=== PATIENT | male | born 1980 | race Caucasian/White ===

== ENCOUNTER 2018-09-23 22:09 | Emergency (ER) | payer OTHER, MEDICAID ==
[~2018-09-23] VITALS: Ht 165.1 cm; Wt 70.9 kg
[2018-09-23 22:11] VITALS: Ht 165.1 cm; Wt 70.9 kg
[2018-09-24] MEDS ORDERED: SOD CHLORIDE 0.9% 1,000 ML IV STA (02:58)
[2018-09-24] MEDS ORDERED: ONDANSETRON 4 MG INJ IV STA (02:58)
[2018-09-24] MEDS ORDERED: LIDOCAINE/MYLANTA 40 ML BTL PO STA (03:51)
[2018-09-24] MEDS ORDERED: FAMOTIDINE 20 MG INJ IV STA (03:51)
--- NOTE | 2018-09-24 03:57 | ERD ---
ER Documentation Chief Complaint Chief Complaint abdominal pain x 2 days HPI This is a 38-year-old male with a past medical history of cholelithiasis who is presenting with 2 days of waxing and waning mild to moderate aching burning colicky epigastric and right upper quadrant pain with nausea and multiple episodes of nonbilious nonbloody yellow vomiting. The patient reports that right now, his symptoms have improved, but when he first came to the emergency department, his symptoms were fairly severe. The patient denies any co nstipation or diarrhea. He denies black or bloody or tarry stools. He denies dysuria or hematuria or urgency or frequency. He denies fever or chills. The patient has had no headache or vision changes. The patient does not endorse neck or back pain. The patient denies lightheadedness or dizziness. The patient has had no chest pain or trouble breathing. The patient has had no focal deficits. The patient has had no weakness or numbness or tingling to the face or extremities. ROS All systems reviewed and are negative except as per history of present illness. Medications Home Meds No Active Prescriptions or Reported Meds Allergies Allergies: Coded Allergies: No Known Allergy (Unverified , 07/03/14) PMhx/Soc History of Surgery: No Anesthesia Reaction: No Hx Neurological Disorder: No Hx Respiratory Disorders: No Hx Cardiac Disorders: No Hx Psychiatric Problems: No Hx Miscellaneous Medical Probl: Yes (Cholelithiasis) Hx Alcohol Use: Yes (OOC) Hx Substance Use: Yes (MJ DAILY) Hx Tobacco Use: No Smoking Status: Never smoker FmHx Family History: No diabetes Physical Exam Vitals Vital Signs Date Temp Pulse Resp B/P (MAP) Pulse Ox O2 O2 Flow FiO2 Time Delivery Rate 09/24/18 98.2 70 14 128/88 98 Room Air 05:03 (101) 09/24/18 98.2 66 14 122/76 98 Room Air 04:09 (91) 09/24/18 98.2 68 16 128/76 98 Room Air 03:06 (93) 09/24/18 98.2 77 18 128/63 98 Room Air 02:46 (84) 09/23/18 98.2 72 18 128/63 98 22:11 (84) Physical Exam Const: No apparent distress, well-developed, well-nourished Head: Normocephalic, Atraumatic Eyes: Normal Conjunctiva. Extraocular movements intact. Pupils equal, round and reactive to light ENT: Normal External Ears, Nose and Mouth. Neck: Full range of motion. No meningismus. Resp: Clear to auscultation bilaterally, No wheezes, rales or rhonchi Cardio: Regular rate and rhythm. No murmurs, rubs or gallops Abd: Soft, non tender, non distended. Normal bowel sounds Skin: No petechiae or rashes Back: No midline tenderness. No CVA tenderness Ext: No cyanosis, or edema Neur: Awake and alert, oriented 4. Cranial nerves intact. No facial droop. Normal strength, sensation and coordination. Psych: Normal Mood and Affect Result Diagram: 09/24/1825409/24/18254 Results 24 hrs Laboratory Tests Test 09/24/18 02:55 White Blood Count 10.0 10^3/ul Red Blood Count 5.31 10^6/ul Hemoglobin 15.6 g/dl Hematocrit 45.9 % Mean Corpuscular Volume 86.4 fl Mean Corpuscular Hemoglobin 29.4 pg Mean Corpuscular Hemoglobin Concent 34.0 g/dl Red Cell Distribution Width 12.3 % Platelet Count 311 10^3/UL Mean Platelet Volume 8.8 fl Immature Granulocytes % 0.400 % Neutrophils % 70.5 % Lymphocytes % 23.6 % Monocytes % 5.0 % Eosinophils % 0.1 % Basophils % 0.4 % Nucleated Red Blood Cells % 0.0 /100WBC Immature Granulocytes # 0.040 10^3/ul Neutrophils # 7.1 10^3/ul Lymphocytes # 2.4 10^3/ul Monocytes # 0.5 10^3/ul Eosinophils # 0.0 10^3/ul Basophils # 0.0 10^3/ul Nucleated Red Blood Cells # 0.0 10^3/ul Urine Color YELLOW Urine Clarity CLEAR Urine pH 6.0 Urine Specific [place] 1.012 Urine Ketones TRACE mg/dL Urine Nitrite NEGATIVE mg/dL Urine Bilirubin NEGATIVE mg/dL Urine Urobilinogen NEGATIVE mg/dL Urine Leukocyte Esterase NEGATIVE [place]/ul Urine Hemoglobin NEGATIVE mg/dL Urine Glucose 1+ mg/dL Urine Total Protein NEGATIVE mg/dl Sodium Level 140 mmol/L Potassium Level 3.8 mmol/L Chloride Level 102 mmol/L Carbon Dioxide Level 27 mmol/L Anion Gap 11 Blood Urea Nitrogen 10 mg/dl Creatinine 0.78 mg/dl Est Glomerular Filtrat Rate mL/min > 60 mL/min Glucose Level 118 mg/dl Calcium Level 9.7 mg/dl Total Bilirubin 0.4 mg/dl Direct Bilirubin 0.00 mg/dl Indirect Bilirubin 0.4 mg/dl Aspartate Amino Transf (AST/SGOT) 31 IU/L Alanine Aminotransferase (ALT/SGPT) 40 IU/L Alkaline Phosphatase 90 IU/L Total Protein 7.7 g/dl Albumin 4.5 g/dl Globulin 3.20 g/dl Albumin/Globulin Ratio 1.40 Lipase 85 U/L Current Medications Medications Dose Sig/Christiano Start Time Status Last (Trade) Ordered Route PRN Stop Time Admin Dose Reason Admin Sodium 1,000 ml @ Q1H STAT 09/24/18 DC 09/24/18 Chloride 1,000 mls/hr IV 02:58 03:05 09/24/18 03:57 Ondansetron 4 mg ONCE STAT 09/24/18 DC 09/24/18 HCl (Zofran IV 02:58 03:05 Inj) 09/24/18 02:59 Famotidine 20 mg ONCE STAT 09/24/18 DC 09/24/18 (Pepcid Iv) IV 03:51 04:04 09/24/18 03:59 40 ml ONCE STAT 09/24/18 DC 09/24/18 Miscellaneous PO 03:51 04:04 Medication 09/24/18 03:59 (Gi Cocktail (2)) Procedures/MDM MDM The patient's presentation warrants further investigation. Previous medical records, if available, were reviewed. LABS The patient's laboratory testing was obtained and reviewed. No emergent treatment was required unless described below. CBC: No E/o of systemic infection or severe anemia or thrombocytopenia Chemistry: No E/o severe acidosis or alkalosis or renal failure or diabetic ketoacidosis. No hyperbilirubinemia or transaminitis, no e/o obstructive cholestatic liver disease. Lipase: No E/o pancreatitis Urine: No E/o acute infection or hematuria IMAGING Imaging and Radiology interpretation reviewed. Ultrasound abdomen FINDINGS: No sonographic Bell's sign. No distension. No wall thickening. No pericholecystic fluid. No sludge or stones. Common bile duct: 3.15 mm. Visualized liver: 13.15 cm. Homogeneous. Right kidney: 11.8 cm. Pancreas obscured by bowel gas IMPRESSION: Normal examination. Electronically viewed and signed by Physician Whitney on 09/24/2018 04:52 TREATMENT/DISPOSITION The patient presents with waxing and waning episodes of epigastric and right upper quadrant abdominal pain. The patient's abdominal exam is currently benign, the but the patient was evaluated for the possibility of gastritis versus PUD versus GERD. The patient was treated for a possible epigastric pathology with significant improvement of his symptoms. The patient endorses a history of cholelithiasis as well. The patient's right upper quadrant ultrasound does not reveal evidence of cholelithiasis or cholecystitis. I have decreased suspicion for biliary colic. The patient does not have any evidence of peritonitis. The patient does not have clinical symptoms concerning for mesenteric ischemia or ischemic colitis. The patient does not have left upper quadrant tenderness. I have low suspicion for pancreatitis. The patient does not have any right lower quadrant tenderness, or periumbilical tenderness. I have low suspicion for appendicitis. The patient does not have suprapubic tenderness. I have decreased suspicion for cystitis. The patient does not have any left lower quadrant tenderness, and I have low suspicion for diverticulosis or diverticulitis. The patient does not have any flank tenderness. The patient does not have gross hematuria. I have decreased suspicion for nephrolithiasis or renal colic. The patient does not have any palpable pulsatile mass or severe abdominal pain radiating to the back. I have low suspicion for aortic aneurysm, dissection or rupture. DISCHARGE Upon reevaluation of the patient, symptoms have improved. No emergent diagnoses were identified. At this time, I feel that the patient stable for discharge. The patient was instructed to follow-up with a primary care physician in 1-3 days. The patient will be given strict precautions with which to return to the emergency department. Prescriptions: Pepcid, Zofran The patient's blood pressure was elevated at greater than 120/80 while in the emergency department. The patient was otherwise stable with no evidence of hypertensive urgency or emergency. The patient does not require admission for blood pressure control. I have discussed with the patient the risks of hypertension. I have instructed the patient to return to the ER for any new or worsening symptoms including chest pain, shortness of breath, headache, blurred vision, confusion, nausea, vomiting or LOC. I have advised the patient to follow up with the primary care physician for outpatient monitoring and treatment for hypertension in 1-3 days. Disclaimer: Inadvertent spelling and grammatical errors are likely due to EHR/dictation software use and do not reflect on the overall quality of patient care. Note that the electronic time recorded on this note does not necessarily reflect the actual time of the patient encounter. Departure Diagnosis: Primary Impression: Epigastric pain Additional Impression: Nausea and vomiting Vomiting type: unspecified Vomiting Intractability: non-intractable Qualified Codes: R11.2 - Nausea with vomiting, unspecified Condition: ALVIN Isaacs MD Sep 24, 2018 03:57
[2018-09-24] MEDS ORDERED: ONDA4TAB8 PO (05:54)
[2018-09-24] MEDS ORDERED: FAMO-96 PO (05:54)
[2018-09-24 05:55] VITALS: BP 133/89; PULSE 71; RESP 20
== END 2018-09-24 06:07 | disposition home or self-care (01) ==
LOC: E/R 22:09
DX: R10.13 Epigastric pain (principal); R11.2 Nausea with vomiting, unspecified
CPT/HCPCS: 36415; 76705; 80053; 81003; 83690; 85025; 96374; 96375; 99285; J2405; J7030